=== PATIENT | male | born 1995 | race Two or more races ===

== ENCOUNTER 2024-06-12 22:19 | Emergency (ER) | payer BC, MEDICAID, SELFPAY ==
[2024-06-12 22:20] VITALS: BMI 31.4
[2024-06-12 22:59] VITALS: BP 133/69; PULSE 88; RESP 18; TEMP 36.9; O2SAT 99
--- NOTE | 2024-06-12 23:13 | PD.EDABDPN ---
ED Abdominal Pain RME/HPI General Chief Complaint: Abdominal Pain Stated complaint: ABD PAIN/ HEADACHE, N/ V/ DIARRHEA Time seen by provider: 06/12/24 22:58 Arrival date/time: 06/12/24 22:19 RME / HPI RME / HPI narrative: This section includes all my notes and documentations, including HPI, PE, and ED course. Diego Williamson MD HPI: 28yo male presents to the ED for a chief complaint of N/V/D x 2 days. He denies any cough, fever, sore throat, abdominal pain or any other associated symptoms. Patient states he was supposed to go to work, but instead came in for evaluation. No other complaints reported. ROS: All negative except as documented in HPI. Physical Exam: General: Alert and oriented. No acute distress when remaining still. Eyes: Conjunctivae and lids clear. ENT: No nasal congestion. Pharynx normal. TM normal bilaterally. Neck: Supple. Heart: RRR. Lungs: No respiratory distress. Good air movement. No rhonchi, wheezing, rales. Abdomen: Soft and nontender. Legs: No clubbing, cyanosis, edema. Skin: Warm and dry. Neuro: Alert and oriented X 3. I reviewed all diagnostic test results. My interpretation of the KUB x-ray is no acute findings. COVID/influenza/strep negative. At this point, diagnoses include stomach flu. Treatment here included Zofran ODT 4 mg. He started to feel better. Recommended supportive care. Based on my best medical judgment, made decision no further evaluation or treatment indicated at this time. Patient understands and agrees to the discharge instructions customized and printed, see below. Discharge Instructions from Dr. Williamson: 1. After evaluation, you have stomach flu. See attached handout on gastroenteritis. 2. This is caused by virus germs. And we do not have good medications to kill the virus germs. But your immune system will fight it off. 3. Your job is to stay hydrated. Zofran for nausea/vomiting. Increase oral fluid and maintain clear urine. If dark or yellow, increase oral fluid. 4. Do not take any medications to stop your diarrhea. But try to replenish the fluid and electrolytes you are losing. 5. Some good choices are water (but not only water because it will cause electrolyte abnormalities), sports drinks like Gatorade (with less sugar content), coconut water, chicken stock, and other fluid with electrolytes (like Pedialyte). 6. See your private doctor on 06/16/2024 if not completely better. 7. Seek immediate medical care with worsening or with any concerns. Diego Williamson MD Related Data Previous Rx's ?Medication ?Instructions ?Recorded oxycodone-acetaminophen 5 mg-325 1 tab PO TID PRN pain #15 tabs 01/30/24 mg tablet (Percocet) ondansetron 4 mg disintegrating 4 mg PO TID PRN nausea and 06/13/24 tablet vomiting 5 days #10 tabs Allergies Allergy/AdvReac Type Severity Reaction Status Date / Time No Known Allergies Allergy Verified 01/30/24 19:36 Review of Systems Review of Systems Systems Reviewed: All systems reviewed, normal except as documented Past Medical History Past Medical History CARDIAC: Negative Congestive Heart Failure RESPIRATORY: Negative Chronic Obstructive Pulmonary Disease (COPD) GENITOURINARY: Negative Renal Disease ENDOCRINE: Negative Diabetes Mellitus Type 1 or Diabetes Mellitus Type 2 Social History SMOKING STATUS: Never smoker ED Exam Narrative Physical exam: As noted in HPI. Course Quality Measures none Orders Category Date Time Status Bedside COVID-19 Antigen Test NOW Care 06/12/24 23:18 Active Bedside Influenza A&B Antigen Test NOW Care 06/12/24 23:18 Active KUB [XR abdomen 1V] Stat Exams 06/12/24 23:19 Completed Strep A Rapid Stat Lab 06/12/24 23:33 Completed Ondansetron Odt [Zofran Odt] Med 06/12/24 23:18 Discontinued 4 mg PO X1 ONE Vital Signs Vital signs: Vital Signs Temperature 98.5 F 06/12/24 22:59 Pulse Rate 88 06/12/24 22:59 Respiratory Rate 18 06/12/24 22:59 Blood Pressure 133/69 H 06/12/24 22:59 Pulse Oximetry (%) 99 06/12/24 22:59 Oxygen Delivery Method Room Air 06/12/24 22:59 Abdominal Pain MDM MDM Narrative MDM Narrative:: Scribe Attestation: 06/12/24 - Tricia Best am scribing for and in the presence of Dr. Williamson. Patient data External records reviewed:: [facility] previous records (Per chart review, patient has no relevant previous ED visits.) Clinical information provided by:: patient Social determinants that could affect healthcare access:: none Patient has the following chronic illnesses:: none How is presenting disease/condition affected by chronic disease/condition?: no chronic disease Evaluation data The following diagnostics were reviewed and interpreted by me:: lab results and radiology exam(s) Lab and/or radiology exams considered but not ordered:: none Interpretation Summary: Stomach flu Medications / Prescriptions Medications or Prescriptions considered but not ordered:: none Medication administrations:: Medication Administration History Discontinued Medications Ondansetron HCl (Ondansetron Odt 4 Mg Tabrap) 4 mg PO X1 ONE; Protocol Stop: 06/12/24 23:19 Last Admin: 06/12/24 23:31 Dose: 4 mg Documented By: ANY Zofrchar Consultations Consultation(s) initiated? (list below): No Diagnosis Differential diagnosis abdominal pain: gastroenteritis and other (COVID, Influenza, Strep, URI, constipation) Most likely diagnosis given after review of the tests above:: Stomach flu Admission Indicated Admission indicated?: not indicated Explain why admission is indicated or not indicated:: Admission criteria not met Admission Request Was there a request for admission?: No Disposition Plan Disposition Plan: Discharge Discharge Attestation Discharge Attestation: The patient and all family members were given an opportunity to ask questions and understood the discharge instructions. Discharge instructions specifically effects, indications for sooner follow up or return to the emergency department, and the expected course of current diagnosis. Patient condition: Stable Discharge Plan Plan Patient Disposition: HOME (Self Care) Prescriptions/Referrals Prescriptions/Med Rec: New ondansetron 4 mg tablet,disintegrating 4 mg PO TID PRN (Reason: nausea and vomiting) 5 Days Qty: 10 0RF No Action oxycodone-acetaminophen [Percocet] 5-325 mg tablet 1 tab PO TID MDD 4g APAP PRN (Reason: pain) Qty: 15 0RF Referrals: Temporary Provider,ED [Physician] - In 1 week Problem List Clinical Impression: Stomach flu Patient/Caregiver Discharge Instructions Discharge Activity: activity as tolerated Education Materials: ED Gastroenteritis, Viral (Adult) Additional Instructions: Discharge Instructions from Dr. Williamson: 1. After evaluation, you have stomach flu.? See attached handout on gastroenteritis. 2. This is caused by virus germs.? And we do not have good medications to kill the virus germs.? But your immune system will fight it off. 3. Your job is to stay hydrated.? Zofran for nausea/vomiting.? Increase oral fluid and maintain clear urine.? If dark or yellow, increase oral fluid. 4. Do not take any medications to stop your diarrhea.? But try to replenish the fluid and electrolytes you are losing. 5. Some good choices are water (but not only water because it will cause electrolyte abnormalities), sports drinks like Gatorade (with less sugar content), coconut water, chicken stock, and other fluid with electrolytes (like Pedialyte). 6. See your private doctor on 06/16/2024 if not completely better. 7. Seek immediate medical care with worsening or with any concerns. Print Language: [place] Islander Stand Alone Forms: [employer] Info., Work/School Release, Patient Portal Info Letter
--- NOTE | 2024-06-12 23:19 | XR_ITS ---
Examination: Abdomen AP single view Technique: AP portable supine abdomen, single view Exam date and time: June 11, 2024 1152 hrs. Indications: Abdominal pain today Findings: Nonobstructive bowel gas pattern. No free air Intact osseous structures Impression: Nonobstructive bowel gas pattern
[2024-06-12] MEDS: ONDANSETRON ODT 4 MG TABRAP PO (23:31)
[2024-06-13 00:12] LABS: Strep A Rapid Negative (Negative)
[2024-06-13 00:49] VITALS: BP 128/76; PULSE 76; RESP 18; TEMP 36.8; O2SAT 99
== END 2024-06-13 00:50 | disposition home or self-care (01) ==
PROVIDERS: Emergency Provider Emergency Medicine
DX: A08.4 Viral intestinal infection, unspecified (principal)
CPT/HCPCS: 74018; 87400; 87651; 87811; 99283; Q0162

== ENCOUNTER 2025-06-14 13:53 | Emergency (ER) | payer BC, SELFPAY ==
[2025-06-14 14:04] VITALS: BP 148/92; PULSE 91; RESP 18; TEMP 37.3; O2SAT 96; BMI 33.3
--- NOTE | 2025-06-14 14:12 | EDNOTE_ITS ---
Nausea/Vomit./Diarrhea-RME/HPI General Chief complaint: Nausea/Vomiting/Diarrhea Stated complaint: drank to much last night Time Seen by Provider: 06/14/25 14:02 Arrival date/time: 06/14/25 13:53 29-year-old male presents to the emergency department today for complaint of nausea vomiting which began today patient reports he drank heavily last night. Patient reports he is not a drinker patient reports no headache dizziness weakness no chest pain or shortness of breath Limitations: no limitations Related Data Previous Rx's ?Medication ?Instructions ?Recorded oxycodone-acetaminophen 5 mg-325 1 tab PO TID PRN pain #15 tabs 01/30/24 mg tablet (Percocet) ondansetron 4 mg disintegrating 4 mg PO Q8H PRN nausea and 06/14/25 tablet vomiting #10 tabs Allergies Allergy/AdvReac Type Severity Reaction Status Date / Time No Known Allergies Allergy Verified 06/14/25 13:57 Review of Systems Review of Systems Systems Reviewed: All systems reviewed, normal except as documented Constitutional Constitutional: Reports system reviewed and no additional complaints, except as documented, Denies fever(s) and Denies headache(s) Eyes Eyes: Reports system reviewed and no additional complaints, except as documented and Denies blurry vision ENT Ears, Nose, Mouth, and Throat: Reports system reviewed and no additional complaints, except as documented, Denies headache(s), Denies nasal congestion and Denies nasal discharge Cardiovascular Cardiovascular: Reports system reviewed and no additional complaints, except as documented, Denies chest pain and Denies dyspnea Respiratory Respiratory: Reports system reviewed and no additional complaints, except as do cumented, Denies chest congestion, Denies cough and Denies dyspnea Gastrointestinal Gastrointestinal: Reports system reviewed and no additional complaints, except as documented, Denies abdominal pain, Reports nausea and Reports vomiting Integumentary/Breasts Skin/Breast: Reports system reviewed and no additional complaints, except as documented and Denies rash Neurologic Neurologic: Reports system reviewed and no additional complaints, except as doc umented, Reports as per HPI and Denies headache(s) Past Medical History Past Medical History CARDIAC: Negative Congestive Heart Failure RESPIRATORY: Negative Chronic Obstructive Pulmonary Disease (COPD) GENITOURINARY: Negative Renal Disease ENDOCRINE: Negative Diabetes Mellitus Type 1 or Diabetes Mellitus Type 2 Social History SMOKING STATUS: Current some day smoker ED Exam General Limitations: Present no limitations General appearance: Present alert and in no apparent distress Head Head exam: Present atraumatic Eye Eye exam: Present normal appearance, PERRL and EOMI ENT ENT exam: Present normal exam, normal oropharynx and mucous membranes moist Neck Neck exam: Present normal inspection, full ROM and trachea midline Chest Chest inspection: Present normal inspection and symmetric chest wall rise Respiratory Respiratory exam: Present normal lung sounds bilaterally; Absent respiratory distress or wheezes Cardiovascular Cardiovascular exam: Present regular rate, normal rhythm and normal heart sounds Abdominal Exam Abdominal exam: Present soft and normal bowel sounds; Absent distention, tenderness, guarding, rebound, rigidity, Khan's sign or tenderness at McBurney's Point Abdominal tenderness: Absent RUQ or RLQ Extremities Exam Extremities exam: Present normal inspection and full ROM Back Exam Back exam: Present normal inspection and full ROM Neurological Exam Neurological exam: Present alert, oriented X3 and CN II-XII intact Psychiatric Psychiatric exam: Present normal affect and normal mood Skin Skin exam: Present warm, dry, intact and normal color Course Quality Measures none Orders Category Date Time Status Metoclopramide Inj [Reglan Inj] Med 06/14/25 14:14 Discontinued 10 mg IM X1 ONE Ondansetron Odt [Zofran Odt] Med 06/14/25 14:14 Discontinued 4 mg PO X1 ONE Vital Signs Vital signs: Vital Signs Temperature 99.1 F 06/14/25 14:04 Pulse Rate 91 06/14/25 14:04 Respiratory Rate 18 06/14/25 14:04 Blood Pressure 148/92 H 06/14/25 14:04 Pulse Oximetry (%) 96 06/14/25 14:04 Oxygen Delivery Method Room Air 06/14/25 14:04 Nausea/Vomiting/Diarrhea MDM Narrative MDM Narrative:: 29-year-old male presents to the emergency department today for complaint of nausea vomiting which began today patient reports he drank heavily last night. Patient reports he is not a drinker patient reports no headache dizziness weakness no chest pain or shortness of breath Clinically patient well-appearing does not appear ill or toxic no acute stress Patient given medication for nausea and vomiting and discharged home Low suspicion for any kind of metabolic abnormality patient hemodynamically stable Explained to the patient should symptoms persist or worsen he should return for reevaluation Patient data External records reviewed:: [facility] previous records Clinical information provided by:: patient Social determinants that could affect healthcare access:: none Patient has the following chronic illnesses:: None How is presenting disease/condition affected by chronic disease/condition?: no chronic disease Evaluation data The following diagnostics were reviewed and interpreted by me:: other (specify) Lab and/or radiology exams considered but not ordered:: Considered not indicated Interpretation Summary: N/A Medications / Prescriptions Medications / Prescriptions considered but not ordered:: Given Medication administrations:: Medication Administration History Discontinued Medications Metoclopramide HCl (Metoclopramide Inj 5 Mg/Ml Vial 2 Ml) 10 mg IM X1 ONE; Protocol Stop: 06/14/25 14:15 Last Admin: 06/14/25 14:20 Dose: 10 mg Documented By: Ondansetron HCl (Ondansetron Odt 4 Mg Tabrap) 4 mg PO X1 ONE; Protocol Stop: 06/14/25 14:15 Last Admin: 06/14/25 14:20 Dose: 4 mg Documented By: Given Consultations Consultation(s) initiated? (list below): No Diagnosis Nausea Differential Diagnosis: traveler's diarrhea and food poisoning Most likely diagnosis given after review of the tests above:: Nausea vomiting alcohol use Admission Indicated Admission indicated?: not indicated Admission Request Was there a request for admission?: No Disposition Plan Disposition Plan: Discharge Discharge Attestation Discharge Attestation: The patient and all family members were given an opportunity to ask questions and understood the discharge instructions. Discharge instructions specifically effects, indications for sooner follow up or return to the emergency department, and the expected course of current diagnosis. Patient condition: Stable Discharge Plan Plan Patient Disposition: HOME (Self Care) Discharge Disposition comment: Stable Prescriptions/Referrals Prescriptions/Med Rec: New ondansetron 4 mg tablet,disintegrating 4 mg PO Q8H PRN (Reason: nausea and vomiting) Qty: 10 0RF No Action oxycodone-acetaminophen [Percocet] 5-325 mg tablet 1 tab PO TID MDD 4g APAP PRN (Reason: pain) Qty: 15 0RF Problem List Clinical Impression: Nausea & vomiting Patient/Caregiver Discharge Instructions Education Materials: ED Vomiting (Adult) Additional Instructions: Please follow up with your primary care doctor in the next 24-48hrs for any worsening symptoms return here immediately Print Language: Thai Stand Alone Forms: [employer] Info., Work/School Release, Patient Portal Info Letter PA/EMD SPECIAL EDUCATION TEACHER Supervising Physician PA/EMD SPECIAL EDUCATION TEACHER Supervising Physician: Dr nava
[2025-06-14] MEDS: ONDANSETRON ODT 4 MG TABRAP PO (14:20)
[2025-06-14] MEDS: METOCLOPRAMIDE INJ 5 MG/ML VIAL 2 ML 10 MG IM (14:20)
== END 2025-06-14 14:55 | disposition home or self-care (01) ==
PROVIDERS: Emergency Provider Family Medicine
DX: R11.2 Nausea with vomiting, unspecified (principal)
CPT/HCPCS: 96372; 99282; J2765; Q0162